=== PATIENT | female | born 1945 | race Two or more races ===

== ENCOUNTER → 2021-08-17 | Day surgery (SDC) | payer MEDICARE, MEDICAID ==
[~2021-08-17] VITALS: Ht 162.6 cm; Wt 78.5 kg
[~2021-08-17] MED LIST: ACETAMINOPHEN 325MG TABLET PO PRN; ASPI-1497 MT; ATOR40TA70 PO; DOCU-268 PO; FENTANYL CITRATE/PF 50MCG/ML 2ML VIAL ONE; GABA-532 PO; HEPARIN SODIUM 1,000 UNIT/1ML VIAL IV ONE; ICOS1CAP PO; IODIXANOL 320MG/ML 100 ML BOTTLE IV ONE; LEVO88TA7 PO; LIDOCAINE HCL 1% 30ML VIAL (10MG/ML) ONE; MIDAZOLAM HCL 2 MG/2 ML VIAL ONE; NEBI10TA2 PO; NICARDIPINE 100MCG/ML 10ML VIAL (CATH LAB) IV ONE; NITROGLYCERIN 50MCG/ML 10ML VIAL (CATH LAB) IV ONE; ONDANSETRON HCL 4MG/2ML INJ IV PRN; TOLT4CAP27 PO; VALS320T16 PO
[2021-08-17 08:38] LABS: BASOPHILS % 2.6 % (0.0-2.0); HEMATOCRIT. 32.9 % (36.0-48.0); HEMOGLOBIN. 10.1 g/dL (12.0-16.0); LYMPHOCYTES % 17.3 % (20.0-50.0); MEAN CORPUSCULAR VOLUME 68.5 fL (81.0-99.0); MEAN PLATELET VOLUME 8.3 fl (7.4-10.4); MONOCYTES % 10.9 % (2.0-8.0); NEUTROPHILS % 66.2 % (40.0-76.0); PLATELET 283 x1000/uL (130-400); RED CELL DISTRIBUTION WIDTH 19.6 % (11.6-14.6)
[2021-08-17 08:47] LABS: CHLORIDE 106 mEq/L (98-107)
[2021-08-17 09:57] LABS: PLATELET ESTIMATE NORMAL
== END | disposition home or self-care (01) ==
LOC: CCL 07:42
PROVIDERS: ATTEND Internal Medicine Cardiovascular Disease
DX: R94.39 Abnormal result of other cardiovascular function study (principal); R07.9 Chest pain, unspecified; R06.02 Shortness of breath; I25.10 Atherosclerotic heart disease of native coronary artery without angina pectoris; I10 Essential (primary) hypertension; E78.5 Hyperlipidemia, unspecified; E03.9 Hypothyroidism, unspecified; Z79.82 Long term (current) use of aspirin; Z79.899 Other long term (current) drug therapy; Z98.890 Other specified postprocedural states; Z20.822 Contact with and (suspected) exposure to COVID-19
CPT/HCPCS: 36415; 80048; 85025; 87426; 93458; C1769; C1893; J1644; J2250; J3010; J3490; Q9967